=== PATIENT | female | born 1970 | race Caucasian/White ===

== ENCOUNTER 2021-10-09 21:11 | Inpatient (IN) | payer SELFPAY ==
[2021-10-09] MEDS ORDERED: Enoxaparin Sodium 40 MG/0.4 ML SYRINGE ONE (22:40)
[2021-10-09 23:07] LABS: #Lymphocytes 0.2 thou/uL (1.20-3.40); #Monocytes 0.1 thou/uL (0.11-0.59); #Neutrophils 2.2 thou/uL (1.40-6.50); %Eosinophils 0.3 % (0.0-10.0); %Lymphocytes 8.6 % (21.0-51.0); %Monocytes 4.3 % (0.0-10.0); %Neutrophils 86.8 % (42.0-75.0); Hemoglobin 11.9 g/dL (12.0-16.0); Mean Corpuscular HGB CONC 31.8 g/dL (32.0-36.0); Mean Corpuscular Hemoglobin 27.9 pg (27.0-31.0); Mean Corpuscular Volume 87.7 fL (78.0-98.0); Mean Platelet Volume 10.4 fL (7.4-10.4); Platelet Count 164 thou/uL (130-400); Red Blood Cell (RBC) Count 4.26 mill/uL (4.20-5.40); White Blood Cell (WBC) Count 2.5 thou/uL (4.8-10.8)
[2021-10-09 23:19] LABS: PTT 31.5 sec (22.9-36.1); Prothrombin Time 13.6 sec (12.0-14.7)
[2021-10-09] MEDS ORDERED: Ondansetron ODT 4 MG TAB SL PRN (23:30)
[2021-10-09] MEDS ORDERED: Acetaminophen 325 MG TAB PO PRN (23:30)
[2021-10-09] MEDS ORDERED: Ondansetron PF 4 MG/2 ML Vial IVP PRN (23:30)
[2021-10-09 23:35] LABS: ALT (SGPT) 16 U/L (8-55); AST (SGOT) 22 U/L (5-34); Albumin 3.6 g/dL (3.5-5.0); Alkaline Phosphatase 68 U/L (40-110); Anion Gap 16 mmol/L (10-20); BUN (Urea Nitrogen) 18 mg/dL (7.0-18.7); Bilirubin, Total 0.3 mg/dL (0.2-1.2); CRP (Inflammatory) 13.78 mg/dL (= or < 0.5); Calc. Creatinine Clearance 0 mL/min (70-130); Calcium 8.6 mg/dL (7.8-10.44); Carbon Dioxide 25 mmol/L (22-29); Chloride 98 mmol/L (98-107); Globulin 2.9 g/dL (2.4-3.5); Protein, Total 6.5 g/dL (6.0-8.3); Sodium 135 mmol/L (136-145)
[2021-10-09 23:50] LABS: Glucose 624 mg/dL (70-105)
[2021-10-10 00:02] VITALS: BMI 43.5
[2021-10-10] MEDS ORDERED: Ondansetron PF 4 MG/2 ML Vial IVP PRN (00:23)
[2021-10-10] MEDS ORDERED: Dextrose 50% Abboject 50 ML SYRINGE SLOW IVP PRN (00:25)
[2021-10-10] MEDS ORDERED: Dextrose 5% in Water 1,000 ML IV PRN (00:25)
[2021-10-10] MEDS ORDERED: Sodium Chloride 0.9% 500 ML IV SCH (00:30)
[2021-10-10] MEDS: HumaLOG 300 UNITS/3 ML VIAL SC PRN ×5 (00:42→16:31)
[2021-10-10] MEDS: Lantus 1000 UNITS/10 ML VIAL SC SCH ×2 (00:46→08:01)
[2021-10-10] MEDS ORDERED: Insulin Regular 300 UNITS/3 ML VIAL IVP SCH ×2 (02:00)
[2021-10-10 07:16] LABS: #Lymphocytes 0.2 thou/uL (1.20-3.40); #Monocytes 0.3 thou/uL (0.11-0.59); #Neutrophils 2.9 thou/uL (1.40-6.50); %Eosinophils 0.5 % (0.0-10.0); %Lymphocytes 6.9 % (21.0-51.0); %Monocytes 7.7 % (0.0-10.0); %Neutrophils 84.9 % (42.0-75.0); Hemoglobin 11.8 g/dL (12.0-16.0); Mean Corpuscular HGB CONC 31.8 g/dL (32.0-36.0); Mean Corpuscular Hemoglobin 27.6 pg (27.0-31.0); Mean Corpuscular Volume 86.8 fL (78.0-98.0); Mean Platelet Volume 10.9 fL (7.4-10.4); Platelet Count 152 thou/uL (130-400); RBC Distribution Width 15.6 % (11.5-14.5); Red Blood Cell (RBC) Count 4.27 mill/uL (4.20-5.40); White Blood Cell (WBC) Count 3.4 thou/uL (4.8-10.8)
[2021-10-10 07:36] LABS: Anion Gap 20 mmol/L (10-20); BUN (Urea Nitrogen) 16 mg/dL (7.0-18.7); Calc. Creatinine Clearance 140 mL/min (70-130); Calcium 8.8 mg/dL (7.8-10.44); Carbon Dioxide 20 mmol/L (22-29); Chloride 103 mmol/L (98-107); Glucose 475 mg/dL (70-105); Potassium 3.3 mmol/L (3.5-5.1); Sodium 140 mmol/L (136-145)
[2021-10-10] MEDS ORDERED: Potassium Chloride 20 MEQ TAB PO SCH (08:00)
[2021-10-10] MEDS: Famotidine 20 MG TAB PO SCH ×2 (08:02→20:39)
[2021-10-10] MEDS: Enoxaparin Sodium 40 MG/0.4 ML SYRINGE SC SCH ×2 (08:02→20:39)
[2021-10-10] MEDS ORDERED: Albuterol Sulfate 2.5 mg/3 ml Neb NEB PRN (08:55)
[2021-10-10] MEDS ORDERED: Dexamethasone 10 MG in Sodium Chloride 0.9% 50 ML IVPB SCH (09:00)
[2021-10-10] MEDS ORDERED: REMDESIVIR 200 MG in Sodium Chloride 0.9% 250 ML 210 ML IV SCH (09:15)
[2021-10-10 10:20] LABS: Hemoglobin A1c 12.3 % (4.0-6.0)
[2021-10-10] MEDS: Zinc Sulfate 220 MG CAP PO SCH (10:35)
[2021-10-10] MEDS: Ascorbic Acid 500 mg Chewable Tablet PO SCH (10:35)
[2021-10-10] MEDS: Cholecalciferol (Vitamin D3) 400 UNITS TAB PO SCH (10:35)
[2021-10-10] MEDS: Dexamethasone 10 MG/ML VIAL SLOW IVP SCH (10:40)
[2021-10-10] MEDS: Carvedilol 25 MG TAB PO SCH (20:39)
[2021-10-10] MEDS: Atorvastatin Calcium 10 MG TAB PO SCH (20:39)
[2021-10-10] MEDS: Benzonatate 100 MG CAP PO PRN (20:44)
[2021-10-10] MEDS ORDERED: Carvedilol 25 MG TAB PO SCH (21:00)
[2021-10-10] MEDS ORDERED: Lantus 1000 UNITS/10 ML VIAL SC SCH (21:00)
[2021-10-11] MEDS: Lantus 1000 UNITS/10 ML VIAL SC SCH ×2 (00:30→08:45)
[2021-10-11] MEDS: HumaLOG 300 UNITS/3 ML VIAL SC PRN ×5 (00:48→21:03)
[2021-10-11] MEDS: Benzonatate 100 MG CAP PO PRN (04:41)
[2021-10-11] MEDS: PARoxetine 20 MG TAB PO SCH (08:42)
[2021-10-11] MEDS: Dexamethasone 10 MG/ML VIAL SLOW IVP SCH (08:42)
[2021-10-11] MEDS: Ascorbic Acid 500 mg Chewable Tablet PO SCH (08:43)
[2021-10-11] MEDS: Carvedilol 25 MG TAB PO SCH ×2 (08:43→21:01)
[2021-10-11] MEDS: Famotidine 20 MG TAB PO SCH ×2 (08:43→21:01)
[2021-10-11] MEDS: Cholecalciferol (Vitamin D3) 400 UNITS TAB PO SCH (08:44)
[2021-10-11] MEDS: Enoxaparin Sodium 40 MG/0.4 ML SYRINGE SC SCH ×2 (08:44→21:01)
[2021-10-11] MEDS: Zinc Sulfate 220 MG CAP PO SCH (08:44)
[2021-10-11] MEDS: REMDESIVIR 100 MG in Sodium Chloride 0.9% 250 ML 230 ML IV SCH (08:45)
[2021-10-11 09:00] LABS: #Lymphocytes 0.2 thou/uL (1.20-3.40); #Monocytes 0.4 thou/uL (0.11-0.59); #Neutrophils 5.4 thou/uL (1.40-6.50); %Basophils 0.2 % (0.0-1.0); %Eosinophils 0.1 % (0.0-10.0); %Lymphocytes 3.9 % (21.0-51.0); %Neutrophils 88.8 % (42.0-75.0); Hemoglobin 11.5 g/dL (12.0-16.0); Mean Corpuscular HGB CONC 31.8 g/dL (32.0-36.0); Mean Corpuscular Hemoglobin 27.1 pg (27.0-31.0); Mean Corpuscular Volume 85.1 fL (78.0-98.0); Mean Platelet Volume 10.6 fL (7.4-10.4); Platelet Count 217 thou/uL (130-400); RBC Distribution Width 15.8 % (11.5-14.5); Red Blood Cell (RBC) Count 4.24 mill/uL (4.20-5.40); White Blood Cell (WBC) Count 6.1 thou/uL (4.8-10.8)
[2021-10-11] MEDS ORDERED: FLU VACC QS2021-22(6MOS UP)/PF 60 MCG/0.5 ML SYRINGE IM ONE (09:00)
[2021-10-11] MEDS ORDERED: Pravastatin Sodium 40 MG TAB PO SCH (09:00)
[2021-10-11] MEDS ORDERED: Non-Formulary Item 1 EACH (Paroxetine Hcl [Paxil] 30 MG Tablet) PO SCH (09:00)
[2021-10-11 09:46] LABS: Anion Gap 14 mmol/L (10-20); BUN (Urea Nitrogen) 16 mg/dL (7.0-18.7); CRP (Inflammatory) 13.28 mg/dL (= or < 0.5); Calc. Creatinine Clearance 162 mL/min (70-130); Calcium 8.9 mg/dL (7.8-10.44); Carbon Dioxide 27 mmol/L (22-29); Chloride 102 mmol/L (98-107); Glucose 337 mg/dL (70-105); Potassium 3.1 mmol/L (3.5-5.1); Sodium 140 mmol/L (136-145)
[2021-10-11] MEDS ORDERED: Potassium Chloride 20 MEQ TAB PO SCH ×2 (11:15→18:15)
[2021-10-11] MEDS ORDERED: NPH, Human Insulin Isophane 300 UNIT/3 ML VIAL SC SCH (12:30)
[2021-10-11 16:39] LABS: Legionella Urinary Ag Negative (Negative); Strep pneumo Urine Ag NEGATIVE (NEGATIVE)
[2021-10-11] MEDS ORDERED: Lantus 1000 UNITS/10 ML VIAL SC SCH (21:00)
[2021-10-11] MEDS: Atorvastatin Calcium 10 MG TAB PO SCH (21:01)
[2021-10-12] MEDS: HumaLOG 300 UNITS/3 ML VIAL SC PRN ×2 (06:34→15:56)
[2021-10-12] MEDS: Ascorbic Acid 500 mg Chewable Tablet PO SCH (08:18)
[2021-10-12] MEDS: PARoxetine 20 MG TAB PO SCH (08:19)
[2021-10-12] MEDS: Famotidine 20 MG TAB PO SCH ×2 (08:19→20:22)
[2021-10-12] MEDS: Dexamethasone 10 MG/ML VIAL SLOW IVP SCH (08:19)
[2021-10-12] MEDS: Cholecalciferol (Vitamin D3) 400 UNITS TAB PO SCH (08:19)
[2021-10-12] MEDS: Carvedilol 25 MG TAB PO SCH ×2 (08:19→20:21)
[2021-10-12] MEDS: Zinc Sulfate 220 MG CAP PO SCH (08:19)
[2021-10-12] MEDS: Enoxaparin Sodium 40 MG/0.4 ML SYRINGE SC SCH ×2 (08:20→20:22)
[2021-10-12] MEDS: REMDESIVIR 100 MG in Sodium Chloride 0.9% 250 ML 230 ML IV SCH (08:28)
[2021-10-12] MEDS ORDERED: Lantus 1000 UNITS/10 ML VIAL SC SCH ×4 (09:00→21:00)
[2021-10-12 09:02] LABS: ALT (SGPT) 13 U/L (8-55); AST (SGOT) 15 U/L (5-34); Albumin 3.2 g/dL (3.5-5.0); Alkaline Phosphatase 58 U/L (40-110); Anion Gap 15 mmol/L (10-20); BUN (Urea Nitrogen) 13 mg/dL (7.0-18.7); Bilirubin, Total 0.3 mg/dL (0.2-1.2); CRP (Inflammatory) 4.16 mg/dL (= or < 0.5); Calc. Creatinine Clearance 178 mL/min (70-130); Calcium 8.6 mg/dL (7.8-10.44); Carbon Dioxide 26 mmol/L (22-29); Chloride 103 mmol/L (98-107); Globulin 2.7 g/dL (2.4-3.5); Glucose 294 mg/dL (70-105); Magnesium 1.8 mg/dL (1.6-2.6); Potassium 3.5 mmol/L (3.5-5.1); Protein, Total 5.9 g/dL (6.0-8.3); Sodium 140 mmol/L (136-145)
[2021-10-12 09:07] LABS: Phosphorus 1.9 mg/dL (2.3-4.7)
[2021-10-12 10:06] LABS: #Lymphocytes 0.3 thou/uL (1.20-3.40); #Monocytes 0.6 thou/uL (0.11-0.59); #Neutrophils 4.7 thou/uL (1.40-6.50); %Eosinophils 0.8 % (0.0-10.0); %Lymphocytes 4.9 % (21.0-51.0); %Monocytes 9.8 % (0.0-10.0); %Neutrophils 84.6 % (42.0-75.0); Hemoglobin 11.7 g/dL (12.0-16.0); Mean Corpuscular HGB CONC 30.4 g/dL (32.0-36.0); Mean Corpuscular Hemoglobin 25.8 pg (27.0-31.0); Mean Corpuscular Volume 84.8 fL (78.0-98.0); Mean Platelet Volume 10.1 fL (7.4-10.4); Platelet Count 279 thou/uL (130-400); RBC Distribution Width 15.8 % (11.5-14.5); Red Blood Cell (RBC) Count 4.51 mill/uL (4.20-5.40); White Blood Cell (WBC) Count 5.6 thou/uL (4.8-10.8)
[2021-10-12] MEDS: PHOS-NAK 1 PKT PACK PO SCH ×2 (15:55→20:22)
[2021-10-12] MEDS: Atorvastatin Calcium 10 MG TAB PO SCH (20:21)
[2021-10-13] MEDS: HumaLOG 300 UNITS/3 ML VIAL SC PRN ×4 (04:58→20:04)
[2021-10-13] MEDS ORDERED: Lantus 1000 UNITS/10 ML VIAL SC SCH (06:45)
[2021-10-13 07:20] LABS: #Lymphocytes 0.3 thou/uL (1.20-3.40); #Monocytes 0.4 thou/uL (0.11-0.59); #Neutrophils 3.4 thou/uL (1.40-6.50); %Basophils 0.4 % (0.0-1.0); %Eosinophils 0.3 % (0.0-10.0); %Lymphocytes 6.2 % (21.0-51.0); %Monocytes 8.9 % (0.0-10.0); %Neutrophils 84.1 % (42.0-75.0); Hemoglobin 12.4 g/dL (12.0-16.0); Mean Corpuscular HGB CONC 31.1 g/dL (32.0-36.0); Mean Corpuscular Hemoglobin 26.4 pg (27.0-31.0); Mean Corpuscular Volume 84.9 fL (78.0-98.0); Mean Platelet Volume 9.8 fL (7.4-10.4); Platelet Count 272 thou/uL (130-400); RBC Distribution Width 15.9 % (11.5-14.5); Red Blood Cell (RBC) Count 4.71 mill/uL (4.20-5.40); White Blood Cell (WBC) Count 4.1 thou/uL (4.8-10.8)
[2021-10-13 07:57] LABS: ALT (SGPT) 15 U/L (8-55); AST (SGOT) 13 U/L (5-34); Albumin 3.4 g/dL (3.5-5.0); Alkaline Phosphatase 61 U/L (40-110); Anion Gap 11 mmol/L (10-20); BUN (Urea Nitrogen) 14 mg/dL (7.0-18.7); Bilirubin, Total 0.3 mg/dL (0.2-1.2); CRP (Inflammatory) 2.27 mg/dL (= or < 0.5); Calc. Creatinine Clearance 183 mL/min (70-130); Calcium 8.4 mg/dL (7.8-10.44); Carbon Dioxide 31 mmol/L (22-29); Chloride 97 mmol/L (98-107); Globulin 2.5 g/dL (2.4-3.5); Glucose 294 mg/dL (70-105); Magnesium 1.8 mg/dL (1.6-2.6); Protein, Total 5.9 g/dL (6.0-8.3); Sodium 136 mmol/L (136-145)
[2021-10-13 08:02] LABS: Phosphorus 2.4 mg/dL (2.3-4.7)
[2021-10-13 08:04] LABS: Potassium 2.9 mmol/L (3.5-5.1)
[2021-10-13] MEDS: Ascorbic Acid 500 mg Chewable Tablet PO SCH (08:56)
[2021-10-13] MEDS: Carvedilol 25 MG TAB PO SCH ×2 (08:56→20:04)
[2021-10-13] MEDS: Cholecalciferol (Vitamin D3) 400 UNITS TAB PO SCH (08:56)
[2021-10-13] MEDS: PARoxetine 20 MG TAB PO SCH (08:56)
[2021-10-13] MEDS: Famotidine 20 MG TAB PO SCH ×2 (08:56→20:04)
[2021-10-13] MEDS: Enoxaparin Sodium 40 MG/0.4 ML SYRINGE SC SCH ×2 (08:57→20:04)
[2021-10-13] MEDS: PHOS-NAK 1 PKT PACK PO SCH ×3 (08:57→20:04)
[2021-10-13] MEDS: REMDESIVIR 100 MG in Sodium Chloride 0.9% 250 ML 230 ML IV SCH (08:57)
[2021-10-13] MEDS: Dexamethasone 10 MG/ML VIAL SLOW IVP SCH (08:57)
[2021-10-13] MEDS: Zinc Sulfate 220 MG CAP PO SCH (08:57)
[2021-10-13] MEDS ORDERED: Potassium Chloride 20 MEQ TAB PO SCH (09:45)
[2021-10-13] MEDS ORDERED: Magnesium 2 GM/50 ML 2 GM in Premix Bag 1 BAG IVPB SCH (09:45)
[2021-10-13] MEDS ORDERED: Potassium Chloride 10 MEQ in Premix Bag 1 BAG IVPB SCH (10:00)
[2021-10-13] MEDS ORDERED: Potassium Chloride 40 MEQ in Sodium Chloride 0.9% 250 ML 250 ML IVPB SCH (12:15)
[2021-10-13] MEDS ORDERED: Electrolyte Replacement Protocol 1 EACH FS SCH (16:15)
[2021-10-13] MEDS ORDERED: Electrolyte Replacement Protocol FS PRN (16:15)
[2021-10-13 18:32] LABS: Anion Gap 13 mmol/L (10-20); BUN (Urea Nitrogen) 20 mg/dL (7.0-18.7); Calc. Creatinine Clearance 151 mL/min (70-130); Calcium 8.5 mg/dL (7.8-10.44); Carbon Dioxide 28 mmol/L (22-29); Chloride 100 mmol/L (98-107); Glucose 411 mg/dL (70-105); Potassium 5.1 mmol/L (3.5-5.1); Sodium 136 mmol/L (136-145)
[2021-10-13] MEDS: Atorvastatin Calcium 10 MG TAB PO SCH (20:04)
[2021-10-13] MEDS: Benzonatate 100 MG CAP PO PRN (20:04)
[2021-10-13] MEDS: Lantus 1000 UNITS/10 ML VIAL SC SCH (20:05)
[2021-10-14] MEDS: HumaLOG 300 UNITS/3 ML VIAL SC PRN ×4 (04:55→21:26)
[2021-10-14 06:30] LABS: Hemoglobin 12.8 g/dL (12.0-16.0); Mean Corpuscular HGB CONC 31.9 g/dL (32.0-36.0); Mean Corpuscular Hemoglobin 27.1 pg (27.0-31.0); Mean Corpuscular Volume 84.8 fL (78.0-98.0); Mean Platelet Volume 9.7 fL (7.4-10.4); Platelet Count 281 thou/uL (130-400); RBC Distribution Width 15.9 % (11.5-14.5); Red Blood Cell (RBC) Count 4.71 mill/uL (4.20-5.40); White Blood Cell (WBC) Count 6.9 thou/uL (4.8-10.8)
[2021-10-14 06:47] LABS: ALT (SGPT) 13 U/L (8-55); AST (SGOT) 11 U/L (5-34); Alkaline Phosphatase 53 U/L (40-110); Anion Gap 13 mmol/L (10-20); BUN (Urea Nitrogen) 16 mg/dL (7.0-18.7); Bilirubin, Total 0.3 mg/dL (0.2-1.2); CRP (Inflammatory) 1.44 mg/dL (= or < 0.5); Calc. Creatinine Clearance 191 mL/min (70-130); Calcium 8.1 mg/dL (7.8-10.44); Carbon Dioxide 30 mmol/L (22-29); Chloride 100 mmol/L (98-107); Globulin 2.2 g/dL (2.4-3.5); Glucose 250 mg/dL (70-105); Potassium 3.8 mmol/L (3.5-5.1); Protein, Total 5.2 g/dL (6.0-8.3); Sodium 139 mmol/L (136-145)
[2021-10-14 06:50] LABS: MDiff Complete? YES
[2021-10-14 06:51] LABS: Band 2 % (5-11); Lymphocytes 2 % (21-51); Monocytes 9 % (0-10); Myelocyte 1 % (0-0); Neutrophil 86 % (42-75)
[2021-10-14 06:52] LABS: Phosphorus 2.9 mg/dL (2.3-4.7)
[2021-10-14] MEDS ORDERED: Magnesium 2 GM/50 ML 2 GM in Premix Bag 1 BAG IVPB SCH (08:00)
[2021-10-14] MEDS: PHOS-NAK 1 PKT PACK PO SCH ×2 (08:43→15:57)
[2021-10-14] MEDS: Famotidine 20 MG TAB PO SCH ×2 (08:43→21:25)
[2021-10-14] MEDS: PARoxetine 20 MG TAB PO SCH (08:43)
[2021-10-14] MEDS: Ascorbic Acid 500 mg Chewable Tablet PO SCH (08:43)
[2021-10-14] MEDS: Zinc Sulfate 220 MG CAP PO SCH (08:43)
[2021-10-14] MEDS: Cholecalciferol (Vitamin D3) 400 UNITS TAB PO SCH (08:43)
[2021-10-14] MEDS: Dexamethasone 10 MG/ML VIAL SLOW IVP SCH (08:44)
[2021-10-14] MEDS: Enoxaparin Sodium 40 MG/0.4 ML SYRINGE SC SCH ×2 (08:44→21:25)
[2021-10-14] MEDS: Carvedilol 25 MG TAB PO SCH ×2 (08:44→21:25)
[2021-10-14] MEDS ORDERED: Lantus 1000 UNITS/10 ML VIAL SC SCH (09:00)
[2021-10-14] MEDS: REMDESIVIR 100 MG in Sodium Chloride 0.9% 250 ML 230 ML IV SCH (10:15)
[2021-10-14] MEDS: Atorvastatin Calcium 10 MG TAB PO SCH (21:25)
[2021-10-14] MEDS: Benzonatate 100 MG CAP PO PRN (21:25)
[2021-10-14] MEDS: Lantus 1000 UNITS/10 ML VIAL SC SCH (21:26)
[2021-10-15] MEDS: HumaLOG 300 UNITS/3 ML VIAL SC PRN ×2 (06:21→12:09)
[2021-10-15] MEDS ORDERED: Mometasone 200 MCG/Formoterol 5 MCG 120 PUFF INHALER INH SCH (06:30)
[2021-10-15 07:04] LABS: #Lymphocytes 0.5 thou/uL (1.20-3.40); #Monocytes 0.8 thou/uL (0.11-0.59); #Neutrophils 6.7 thou/uL (1.40-6.50); %Eosinophils 0.2 % (0.0-10.0); %Lymphocytes 5.8 % (21.0-51.0); %Monocytes 9.5 % (0.0-10.0); %Neutrophils 84.5 % (42.0-75.0); Mean Corpuscular HGB CONC 31.1 g/dL (32.0-36.0); Mean Corpuscular Hemoglobin 26.7 pg (27.0-31.0); Mean Corpuscular Volume 85.8 fL (78.0-98.0); Mean Platelet Volume 9.6 fL (7.4-10.4); Platelet Count 298 thou/uL (130-400); Red Blood Cell (RBC) Count 4.87 mill/uL (4.20-5.40); White Blood Cell (WBC) Count 7.9 thou/uL (4.8-10.8)
[2021-10-15 07:26] LABS: Phosphorus 3.3 mg/dL (2.3-4.7)
[2021-10-15 07:29] LABS: ALT (SGPT) 17 U/L (8-55); AST (SGOT) 13 U/L (5-34); Albumin 3.1 g/dL (3.5-5.0); Alkaline Phosphatase 52 U/L (40-110); Anion Gap 10 mmol/L (10-20); BUN (Urea Nitrogen) 16 mg/dL (7.0-18.7); Bilirubin, Total 0.4 mg/dL (0.2-1.2); CRP (Inflammatory) 0.82 mg/dL (= or < 0.5); Calc. Creatinine Clearance 173 mL/min (70-130); Calcium 8.3 mg/dL (7.8-10.44); Carbon Dioxide 33 mmol/L (22-29); Chloride 99 mmol/L (98-107); Globulin 2.1 g/dL (2.4-3.5); Glucose 205 mg/dL (70-105); Magnesium 2.3 mg/dL (1.6-2.6); Potassium 3.8 mmol/L (3.5-5.1); Protein, Total 5.2 g/dL (6.0-8.3); Sodium 138 mmol/L (136-145)
[2021-10-15] MEDS ORDERED: Lantus 1000 UNITS/10 ML VIAL SC SCH ×2 (08:09→09:00)
[2021-10-15] MEDS: Ascorbic Acid 500 mg Chewable Tablet PO SCH (09:00)
[2021-10-15] MEDS: PARoxetine 20 MG TAB PO SCH (09:00)
[2021-10-15] MEDS: Carvedilol 25 MG TAB PO SCH (09:00)
[2021-10-15] MEDS: Zinc Sulfate 220 MG CAP PO SCH (09:00)
[2021-10-15] MEDS: Famotidine 20 MG TAB PO SCH (09:01)
[2021-10-15] MEDS: Cholecalciferol (Vitamin D3) 400 UNITS TAB PO SCH (09:01)
[2021-10-15] MEDS: Dexamethasone 10 MG/ML VIAL SLOW IVP SCH (09:01)
[2021-10-15] MEDS: Enoxaparin Sodium 40 MG/0.4 ML SYRINGE SC SCH (09:02)
[2021-10-15 09:24] VITALS: TEMP 97.7
[2021-10-15 12:15] VITALS: BP 130/75
== END 2021-10-15 16:04 | disposition home or self-care (01) | DRG 177 ==
LOC: ERS 21:11 → T4-A 22:40 → T4-B 10-10 20:16
PROVIDERS: ADMIT Internal Medicine; ATTEND Internal Medicine
PROC: 8E0ZXY6 Isolation (ICD-10-PCS; principal; 2021-10-10)
PROC: 3E0333Z Introduction of Anti-inflammatory into Peripheral Vein, Percutaneous Approach (ICD-10-PCS; 2021-10-10)
PROC: XW033E5 Introduction of Remdesivir Anti-infective into Peripheral Vein, Percutaneous Approach, New Technology Group 5 (ICD-10-PCS; 2021-10-10)
DX: U07.1 COVID-19 (principal); J96.01 Acute respiratory failure with hypoxia; J12.82 Pneumonia due to coronavirus disease 2019; E87.1 Hypo-osmolality and hyponatremia; N17.9 Acute kidney failure, unspecified; E78.5 Hyperlipidemia, unspecified; E87.6 Hypokalemia; M32.9 Systemic lupus erythematosus, unspecified; E11.65 Type 2 diabetes mellitus with hyperglycemia; F43.10 Post-traumatic stress disorder, unspecified; F32.5 Major depressive disorder, single episode, in full remission; I10 Essential (primary) hypertension; D64.9 Anemia, unspecified; Z88.0 Allergy status to penicillin; Z79.4 Long term (current) use of insulin; Z79.899 Other long term (current) drug therapy; Z87.891 Personal history of nicotine dependence; Z90.49 Acquired absence of other specified parts of digestive tract
CPT/HCPCS: 36415; 36416; 80048; 80053; 82728; 83036; 83735; 84100; 84145; 85025; 85379; 85610; 85652; 85730; 86140; 87040; 87081; 87449; 87899; 96372; 99285; J1100; J1650; J1815; J3475; J3480; J7030; J7050